=== PATIENT | male | born 1975 | race Caucasian/White ===

== ENCOUNTER 2018-02-09 11:22 | Emergency (ER) | payer OTHER ==
[2018-02-09 11:39] VITALS: RESP 16
--- NOTE | 2018-02-09 12:26 | ED ---
Lower Extremity Injury HPI - General Chief Complaint: Extremity Injury, Lower Stated Complaint: Ankle Pain Time Seen by Provider: 02/09/18 11:40 Source: patient, RN notes reviewed, old records reviewed Mode of arrival: ambulatory Limitations: no limitations - History of Present Illness Initial Comments: Patient is a 42-year-old male presents emergency department today chief complaint of left ankle pain. He reports that yesterday he was running and jumped in the pool and his foot hyperextended. He reports he felt a popping sensation in his Achilles. Patient states that he is able to dorsiflex and plantarflex foot. He reports bruising and swelling and pain noted to the Achilles tendon. Patient states is upper knee pain or calf pain. Denies any previous injury of the foot or leg. He reports he does not seem PCP. His never seen an cheese specialist. - Related Data Home Medications Medication Instructions Recorded Confirmed Ibuprofen [Motrin Ib] 200 mg PO DAILY PRN 02/09/18 02/09/18 Allergies Allergy/AdvReac Type Severity Reaction Status Date / Time No Known Allergies Allergy Verified 02/09/18 11:56 Review of Systems ROS Statement: Those systems with pertinent positive or pertinent negative responses have been documented in the HPI. ROS Other: All systems not noted in ROS Statement are negative. Past Medical History Past Medical History: No Reported History History of Any Multi-Drug Resistant Organisms: None Reported Additional Past Surgical History / Comment(s): tumors off bilat breasts Past Psychological History: No Psychological Hx Reported Smoking Status: Current every day smoker Past Alcohol Use History: Occasional Past Drug Use History: Marijuana General Exam - General Exam Comments Initial Comments: This is a 42-year-old male. Alert and oriented. No significant distress. Limitations: no limitations General appearance: alert, in no apparent distress Head exam: Present: atraumatic Eye exam: Present: normal appearance, PERRL, EOMI. Absent: scleral icterus, conjunctival injection, periorbital swelling ENT exam: Present: normal exam, normal oropharynx, mucous membranes moist Neck exam: Present: normal inspection. Absent: tenderness, meningismus, lymphadenopathy Respiratory exam: Present: normal lung sounds bilaterally. Absent: respiratory distress, wheezes, rales, rhonchi, stridor Cardiovascular Exam: Present: regular rate, normal rhythm, normal heart sounds. Absent: systolic murmur, diastolic murmur, rubs, gallop, clicks GI/Abdominal exam: Present: soft, normal bowel sounds. Absent: distended, tenderness, guarding, rebound, rigid Extremities exam: Present: normal inspection, full ROM, normal capillary refill. Absent: tenderness, pedal edema, joint swelling, calf tenderness Left Lower Leg exam: Present: normal inspection, full ROM Ankle exam: Present: tenderness, swelling, deformity (Patient does have some tenderness over the Achilles tendon. There is no Achilles tendon appears to be intact over the lateral aspect on the medial aspect seems to be loose with an indentation. and swelling noted.). Absent: normal inspection, full ROM Foot/Toe exam: Present: normal inspection, full ROM Neurovascular tendon exam: Present: no vascular compromise Gait: observed and normal Back exam: Present: normal inspection Neurological exam: Present: alert, oriented X3, CN II-XII intact Psychiatric exam: Present: normal affect, normal mood Skin exam: Present: warm, dry, intact, normal color. Absent: rash Course Vital Signs 02/09/18 02/09/18 11:36 13:24 Temperature 98.6 F 97.9 F Pulse Rate 70 68 Respiratory 16 16 Rate Blood Pressure 155/103 136/91 O2 Sat by Pulse 97 100 Oximetry Procedures - Orthopedic Splinting/Casting Injury #1 Side: left Lower Extremity Injury Location: ankle Lower Extremity Immobilizer: posterior splint, Patricio wrap, synthetic pre-padded splint Other Orthopedic Equipment: crutches Additional Comments: Patient is NV intact, less than 2 second cap refill. Medical Decision Making - Medical Decision Making This Patient is a 42-year-old male presents emergency Department chief complaint left ankle pain after hyperextending the foot. Clinical examination seems Patient may have a partial Achilles tendon rupture. He is able to plantar and dorsal foot. Patient is neurovascularly intact. X-rays were reviewed of the ankle showed no acute fracture or abnormality. With the concern for Achilles tendon rupture into place the Patient in a posterior splint. Advised Patient to use crutches take a anti-inflammatory medicine follow-up with PCP and orthopedic. Discussed that he may require surgery. I discussed the importance of keeping the splint on. Patient understood treatment plan will comply. Return parameters were discussed. - Radiology Data Radiology results: report reviewed No Acute fracture dislocation of symptoms persist follow-up in 7-10 days would be suggested. Disposition Clinical Impression: Partial Achilles tendon tear Disposition: HOME SELF-CARE Condition: Good Additional Instructions: Patient is remain in the splint. Follow-up with cheese specialist. Return to the emergency department if any alarming signs or symptoms occur. Ambulatory with crutches. Motrin Tylenol for pain. Is patient prescribed a controlled substance at d/c from ED?: No When asked, does pt state using other controlled substances?: No If prescribed controlled substance>3 days was MAPS reviewed?: No If opioid is for acute pain is fill amount 7 days or less?: No If Rx opioid, was Start Talking consent form obtained?: No Referrals: None,Stated [Primary Care Provider] - 1-2 days Edvin Rodrigez DO [Doctor of Osteopathic Medicine] - 1-2 days Time of Disposition: 13:12
--- NOTE | 2018-02-09 12:32 | XR ---
EXAMINATION TYPE: XR ankle complete LT DATE OF EXAM: 02/09/2018 COMPARISON: NONE HISTORY: Pain FINDINGS: Three views of the ankle demonstrate the ankle mortise to be intact and symmetric. The joint spaces are preserved. The osseous structures are intact. Calcaneal spur noted. IMPRESSION: 1. No definite acute fracture or dislocation, if symptoms persist follow-up study in 7 to 10 days wou ld be suggested.
[2018-02-09 13:25] VITALS: BP 136/91; PULSE 68; TEMP 97.9
== END 2018-02-09 13:33 | disposition home or self-care (01) ==
LOC: EC 11:22
DX: S86.012A Strain of left Achilles tendon, initial encounter (principal); F17.200 Nicotine dependence, unspecified, uncomplicated; X50.0XXA Overexertion from strenuous movement or load, initial encounter; Y93.39 Activity, other involving climbing, rappelling and jumping off; Y92.34 Swimming pool (public) as the place of occurrence of the external cause
CPT/HCPCS: 29515; 99284